=== PATIENT | male | born 1995 | race Caucasian/White ===

== ENCOUNTER 2016-11-22 07:53 | Emergency (ER) | payer OTHER ==
[2016-11-22] MEDS ORDERED: Diphtheria,Pertussis(Acell),Tetanus Vaccine 0.5 ML SDV IM ONE (08:03)
[2016-11-22] MEDS ORDERED: Lidocaine 1% with EPINEPHrine 1:100,000 20 ML MDV INJECT ONE (08:03)
[2016-11-22 08:25] VITALS: BP 118/82
--- NOTE | 2016-11-22 09:05 | EDM.PDOC ---
ED HPI GENERAL MEDICAL PROBLEM - General Chief Complaint: Upper Extremity Injury/Pain Stated Complaint: LEFT HAND Time Seen by Provider: 11/22/16 08:00 Source of Information: Reports: Patient History Limitations: Reports: No Limitations - History of Present Illness INITIAL COMMENTS - FREE TEXT/NARRATIVE: 21 yo male presents from work with a laceration to his L thenar emminence. Is uncertain about the timing of his last tetanus. Onset: Today Onset Date: 11/22/16 Onset Time: 07:00 Duration: Minutes: Location: Reports: Upper Extremity, Left Quality: Reports: Ache Severity: Moderate Improves with: Reports: None Worsens with: Reports: Other (touching wound) Context: Reports: Other (industrial injury) Associated Symptoms: Reports: No Other Symptoms Treatments MANAGER BAKERY: Reports: Other (see below) (none) Left Hand Pain Score (Numeric/FACES): 8 - Related Data Allergies Allergy/AdvReac Type Severity Reaction Status Date / Time No Known Allergies Allergy Verified 11/22/16 08:31 Home Meds: Home Meds Acetaminophen/HYDROcodone [Leola 325-5 MG] 1 - 2 tab PO Q6H PRN #14 tab [Rx] Review of Systems - Review of Systems Review Of Systems: See Below Constitutional: Reports: No Symptoms Musculoskeletal: Reports: Hand Pain (left) Skin: Reports: Wound (Flat laceration to the left thenar emminence. ) Neurological: Reports: No Symptoms Psychiatric: Reports: No Symptoms ED EXAM, GENERAL - Physical Exam Exam: See Below Exam Limited By: No Limitations General Appearance: Alert, WD/WN, No Apparent Distress, Anxious Extremities: Other (Wound L thenar emminence.) Skin Exam: Warm, Dry, Normal Color, No Rash, Wound/Incision (3 x 2 cm full thickness flap laceration to the L thenar emminence. No arterial bleeding. Flap is handing on by approximately 1/4 inch of tissue. Flap is mostly avascular. No FB's noted on inspection. ) Course - Vital Signs Text/Narrative:: Wound was anesth locally with 20 ml of 1% lidocaine + epi. Wound cleaned per nursing with saline. Closure with simple sutures of 6-0 Ethilon. A dressing was then applied per nursing. Last Recorded V/S: Last Vital Signs Temp 36.9 C 11/22/16 07:55 Pulse 82 11/22/16 07:55 Resp 20 11/22/16 07:55 BP 118/82 11/22/16 07:55 Pulse Ox 97 11/22/16 07:55 - Orders/Labs/Meds Orders: Active Orders 24 hr Category Date Time Status Vaccines to be Administered [RC] PER UNIT ROUTINE Care 11/22/16 08:03 Active Meds: Medications Discontinued Medications Generic Name Dose Route Start Last Admin Trade Name Edmund PRN Reason Stop Dose Admin Diphtheria/Tetanus/Acell Pertussis 0.5 ml 11/22/16 08:03 Adacel IM 11/22/16 08:04 .ONCE ONE Lidocaine/Epinephrine 20 ml 11/22/16 08:03 Xylocaine 1% With Epinephrine 1:100,000 INJECT 11/22/16 08:04 ONETIME ONE Departure - Departure Time of Disposition: 09:10 Disposition: Home, Self-Care 01 Condition: Good Clinical Impression: Hand laceration Qualifiers: Encounter type: initial encounter Foreign body presence: without foreign body Laterality: left Qualified Code(s): S61.412A - Laceration without foreign body of left hand, initial encounter - Discharge Information Referrals: PCP,None [Primary Care Provider] - Forms: ED Return to Work/School Form Care Plan Goals: Keep hand elevated as much as possible today and tomorrow. Keep left hand clean for the next 72 hrs. Take acetaminophen or Leola as needed for pain relief. Starting tomorrow morning clean wound gently with 1/2 water and 1/2 peroxide. Dry. Then apply Bacitracin ointment and a new dressing. Wound recheck in a clinic by your doctor Saturday late afternoon or Saturday morning. Stitches out by your doctor in 9-10 days, call for an appt. - My Orders Last 24 Hours: My Active Orders 11/22/16 08:03 Vaccines to be Administered [RC] PER UNIT ROUTINE - Assessment/Plan Last 24 Hours: My Active Orders 11/22/16 08:03 Vaccines to be Administered [RC] PER UNIT ROUTINE
== END 2016-11-22 09:25 | disposition home or self-care (01) ==
LOC: FB.ED 07:53
DX: S61.412A Laceration without foreign body of left hand, initial encounter (principal); Z23 Encounter for immunization; W18.00XA Striking against unspecified object with subsequent fall, initial encounter; Y99.0 Civilian activity done for income or pay
CPT/HCPCS: 12002; 90471; 90715; 99282; A4217